=== PATIENT | male | born 1970 | race Caucasian/White ===

== ENCOUNTER 2024-11-02 09:10 | Emergency (ER) | payer BC, SELFPAY ==
[2024-11-02 09:19] VITALS: BP 160/98
--- NOTE | 2024-11-02 10:23 | ED.GENMED ---
History of Present Illness
General
Chief Complaint: Back Pain
Source: patient
Exam Limitations: none
Time Seen by Provider: 11/02/24 10:09
Nursing documentation reviewed up to this point in time: agreed with
History of Present Illness
History of Present Illness:
54-year-old male with past medical history of hypertension hyperlipidemia presenting to the emergency department today with concerns of a piercing upper back pain described as severe but somewhat intermittent ongoing over the past 3 weeks but an
episode today as well as shortness of breath with exertion as well intermittently. Denies any specific chest pain nausea vomiting diaphoresis. Denies any recent illness coughing upper respiratory symptoms.
Past History
Social History
Tobacco: Non-smoker
Employment: Employed
Review of Systems
Review of Systems
Allergies reviewed?: Yes
All Other Systems: ROS reviewed and negative except as documented in HPI and ROS
Phy Exam
Physical Exam
Physical Exam:
GENERAL: Alert , in no apparent distress
EYE: pupils equal and reactive
NECK: Supple, no significant adenopathy.
ENT: o/p clr, mmm.
CARDIAC: Regular rate and rhythm .
LUNGS: Clear breath sounds bilaterally, no acute respiratory distress, no wheezes/rales/rhonchi
ABDOMEN: Soft, without focal tenderness, no r/g, no cvat
NEUROLOGICAL: Alert and oriented, no focal neuro deficits
SKIN: Warm and dry, skin intact.
MUSCULOSKELETAL: No edema, well perfused.
PSYCH: Normal and appropriate interaction.
Course
Orders/Labs/Results
Orders:
Orders
11/02/24 09:21
EKG [Electrocardiogram (*1)] Urgent
Reason for Study: Fatigue / Weakness
EKG- Treatment ONCE
11/02/24 10:19
CT Chest PE Study Urgent
Comment:
Reason For Exam: upper back pain sharp, SOB
11/02/24 11:10
Complete Blood Count/With Diff Urgent
Comprehensive Metabolic Panel Urgent
Lipase Urgent
Magnesium Urgent
NT-proBNP Urgent
Troponin I Urgent
11/02/24 12:15
Electrocardiogram (*1) Urgent
Reason for Study: Chest Pain
EKG- Treatment ONCE
Abnormal Lab Results
11/02/24
11:10
RBC 4.54 L 10^6/uL
(4.70-6.10)
MPV 10.8 H fL
(7.4-10.4)
Immature Gran % 0.7 H %
(0-0.5)
Monocytes % 9.4 H %
(1.7-9.3)
Glucose 115 H mg/dl
(70-99)
11/02/24 11:10
11/02/24 11:10
Vital Signs
Initial and Last Documented VS:
Initial Vital Signs
Temp Pulse Resp BP Pulse Ox
98.2 F 82 16 160/98 98
11/02/24 09:19 11/02/24 09:19 11/02/24 09:19 11/02/24 09:19 11/02/24 09:19
Last Documented Vital Signs
Temp Pulse Resp BP Pulse Ox
98.2 F 82 16 160/98 98
11/02/24 09:19 11/02/24 09:19 11/02/24 09:19 11/02/24 09:19 11/02/24 09:19
MDM/Problems Addressed
MDM/Problems Addressed:
54-year-old male presenting to the emergency department today with concerns of upper back pain described as sharp piercing through the back without significant radiation seems worse with exertion. Denies specific history of blood clots but with
concerning story plan for CT scan labs. Initial EKG without concerning features. CT without emergent findings. Nodule was discussed with the patient. Labs unremarkable 2 EKGs without signs of ischemia stable for outpatient management return
precautions given. Symptoms most likely consistent with mechanical pain.
*Critical Care Note
Total Time (30-74mins, 75-104mins- exclusive of procedures): Not Applicable
ED Attending Note
-
Portions of this chart may have been created with voice recognition software.� Occasional wrong word or��sound alike� substitutions may have occurred due to the inherent limitations of voice recognition software.
Discharge Plan
Departure
Patient Disposition: Home (Routine Discharge)
Date of Disposition: 11/02/24
Time of Disposition: 14:00
Patient with high blood pressure during this ER visit?: No
Condition: Good
Covid-19: Not Applicable
Discharge Problem:
Acute upper back pain, Incidental pulmonary nodule
Instructions: Upper Back Pain (DC), Chest Pain CBC Follow Up
Prescriptions:
New
naproxen sodium 550 mg tablet
550 mg PO Q12H PRN (Reason: Pain) 7 Days Qty: 14 0RF
No Action
hydrocodone-acetaminophen [Vicodin] 1 EACH tablet
1 - 2 tab PO Q6HPRN PRN (Reason: rib pain) Qty: 20 0RF
tizanidine 4 mg capsule
4 mg PO Q8H PRN (Reason: muscle spasticity) Qty: 7 0RF
ibuprofen 600 mg tablet
600 mg PO Q6H PRN (Reason: pain) Qty: 20 0RF
lidocaine 4 % adhesive patch,medicated
1 patch topical Q24H PRN (Reason: pain) Qty: 10 0RF
acetaminophen 325 mg capsule
650 mg PO Q6H PRN (Reason: pain) Qty: 30 0RF
methylprednisolone [Medrol (Aniket)] 4 mg tablets,dose pack
See Rx Instructions .ROUTE .COMPLEX Qty: 21 0RF
Rx Instructions:
orally per package directions
Referrals:
Donovan Claros, DO [Family Provider] -
Activity Restrictions/Additional Instructions:
You came to the emergency department today with concern of upper back pain. Here you had a reassuring assessment with normal labs EKG and a reassuring CT scan. There was an incidental finding of a nodule in your right middle lobe that will require
a repeated CT scan in 6 months. There is also some evidence of mild coronary artery calcifications. Please follow closely with cardiology and your primary care doctor. Return for any worsening, new or concerning symptoms.
Interventions
Interventions:
*Risk Screen - Suicide Last Done: 11/02/24 09:19
*General Assessment Last Done: 11/02/24 12:01
*Neglect/Abuse Screening Last Done: 11/02/24 09:19
ED- Fall Risk Assessment Last Done: 11/02/24 12:01
*ED COVID-19 Vaccine History Last Done: 11/02/24 12:01
ED-Musculoskeletal Assessment Last Done: 11/02/24 12:01
Discharge Date and Time
Print Language: FRENCH
[2024-11-02 11:27] LABS: % Basophils 0.8 % (0-2); % Eosinophils 5.6 % (0-6); % Immature Granulocytes 0.7 % (0-0.5); % Lymphocytes 29.8 % (20.5-51.1); % Monocytes 9.4 % (1.7-9.3); % Neutrophils 53.7 % (42.2-75.2); Absolute Basophils 0.1 10^3/uL (0-0.2); Absolute Eosinophils 0.3 10^3/uL (0-0.7); Absolute Lymphocytes 1.8 10^3/uL (1.2-3.4); Absolute Monocytes 0.6 10^3/uL (0.1-0.6); Absolute Neutrophils 3.2 10^3/uL (1.4-6.5); Hematocrit 39.9 % (39.0-52.0); Hemoglobin 13.4 g/dL (13.0-18.0); Mean Corp Hgb Conc. 33.6 g/dL (33.0-37.0); Mean Corpuscular Hgb 29.5 pg (27.0-31.0); Mean Corpuscular Volume 87.9 fL (80.0-94.0); Mean Platelet Volume 10.8 fL (7.4-10.4); Nucleated Red Blood Cells % 0 % (-); Platelet Count 264 10^3/uL (130-400); Red Blood Cell Count 4.54 10^6/uL (4.70-6.10); Red Cell Dist. Width 12.1 % (11.5-14.5)
[2024-11-02 11:40] LABS: ALT (SGPT) 36 U/L (0-50); AST (SGOT) 24 U/L (17-59); Albumin 4.7 g/dl (3.5-5.0); Alkaline Phosphatase 49 U/L (38-126); Blood Urea Nitrogen 17 mg/dl (9-20); Calcium 9.5 mg/dl (8.4-10.2); Carbon Dioxide 27 mmol/L (22-30); Chloride 104 mmol/L (98-107); Glucose 115 mg/dl (70-99); Potassium 4.4 mmol/L (3.5-5.1); Sodium 139 mmol/L (135-145); Total Bilirubin 0.6 mg/dl (0.2-1.3); Total Protein 7.6 g/dl (6.3-8.2); eGFR > 60.00
[2024-11-02 11:52] LABS: NT-proBNP 49.7 pg/ml; Troponin I < 0.012 ng/ml
[2024-11-02 12:45] LABS: Lipase 52 U/L (23-300)
[2024-11-02 14:04] VITALS: BP 157/94
[2024-11-02] MEDS: TORADOL 15 MG IV (14:17)
== END 2024-11-02 14:30 | disposition home or self-care (01) ==
LOC: EMR 09:10
PROVIDERS: Physician Assistant; EMERGENCY PHYSICIAN Student in an Organized Health Care Education/Training Program; FAMILY PHYSICIAN Family Medicine
DX: M54.6 Pain in thoracic spine (principal); R91.1 Solitary pulmonary nodule; E78.5 Hyperlipidemia, unspecified; I10 Essential (primary) hypertension
CPT/HCPCS: 99284; 96374; 71275; 80053; 83690; 83735; 83880; 84484; 85025; 93005; Q9967

== ENCOUNTER → 2025-03-10 18:31 | Outpatient (REF) | payer BC, SELFPAY | LOC: MRI 3T 18:31 | PROVIDERS: ATTENDING PHYSICIAN Urology | DX: R97.20 Elevated prostate specific antigen [PSA] (principal) | CPT/HCPCS: 72197; A9575 ==

== ENCOUNTER → 2025-03-30 14:22 | Outpatient (REF) | payer BC, SELFPAY ==
[2025-03-30 15:40] LABS: % Basophils 0.8 % (0-2); % Eosinophils 3.8 % (0-6); % Immature Granulocytes 0.9 % (0-0.5); % Lymphocytes 26.7 % (20.5-51.1); % Monocytes 7.9 % (1.7-9.3); % Neutrophils 59.9 % (42.2-75.2); Absolute Basophils 0.1 10^3/uL (0-0.2); Absolute Eosinophils 0.3 10^3/uL (0-0.7); Absolute Immature Granulocytes 0.1 10^3/uL (0-0.05); Absolute Lymphocytes 1.8 10^3/uL (1.2-3.4); Absolute Monocytes 0.5 10^3/uL (0.1-0.6); Hematocrit 40.9 % (39.0-52.0); Hemoglobin 14.3 g/dL (13.0-18.0); Mean Corpuscular Hgb 30.2 pg (27.0-31.0); Mean Corpuscular Volume 86.5 fL (80.0-94.0); Nucleated Red Blood Cells % 0 % (-); Platelet Count 263 10^3/uL (130-400); Red Blood Cell Count 4.73 10^6/uL (4.70-6.10); White Blood Cell Count 6.6 10^3/uL (4.8-10.8)
[2025-03-30 15:57] LABS: Blood Urea Nitrogen 15 mg/dl (9-20); Calcium 9.8 mg/dl (8.4-10.2); Carbon Dioxide 23 mmol/L (22-30); Chloride 109 mmol/L (98-107); Glucose 100 mg/dl (70-99); Potassium 4.3 mmol/L (3.5-5.1); Sodium 143 mmol/L (135-145); eGFR > 60.00
== END ==
LOC: REG 14:22
PROVIDERS: ATTENDING PHYSICIAN Urology; FAMILY PHYSICIAN Family Medicine
DX: R97.20 Elevated prostate specific antigen [PSA] (principal)
CPT/HCPCS: 36415; 80048; 84153; 84154; 85025